=== PATIENT | female | born 1930 | race Caucasian/White ===

== ENCOUNTER 2018-03-30 19:19 | Emergency (ER) | payer MEDICARE, BC, OTHER ==
[~2018-03-30] VITALS: Ht 149.9 cm; Wt 52.6 kg
[~2018-03-30 19:19] MED LIST: ASPIR 8181 MG PO; ATORVASTATIN CA20 MG PO; Aspirin PO; BACTRIM DS TAB1 EACH PO; CARAFATE1 GM PO; D3 + K2 DOTS 11 EACH; GERITOL COMPLE1 EACH; LOSARTAN POTAS100 MG PO; METOPROLOL SUCC50 MG PO; NORCO 7.5-3251 EACH PO; PRILOSEC20 MG PO; PROTONIX40 MG PO; TYLENOL PO
--- NOTE | 2018-03-30 20:45 | Diagnostic Imaging Report ---
History:Trauma Comparison studies: None Technique: Axial images were obtained from the skull base to the vertex. Coronal and sagittal images reconstructed from the axial data. Intravenous contrast: None Findings: Scalp/skull: No abnormalities. Extra-axial spaces: No masses. No fluid collections. Brain sulci: Moderately prominent. Ventricles: Moderate compensatory dilatation. No hydrocephalus. Parenchyma: Ill-defined confluent hypodensities in the supratentorial white matter are microvascular ischemic changes. No masses, hemorrhage, acute or chronic cortical vascular insults. Sellar/suprasellar region: No abnormalities. Craniocervical junction: Patent foramen magnum. No Chiari one malformation. Incidental findings: Atherosclerotic calcifications in the carotid siphons and left vertebral artery. Impression: No acute abnormalities. Chronic findings: 1. Moderate generalized volume loss. 2. Diffuse supratentorial white matter microvascular ischemic changes. Signed by: Dr. Syd Hurst M.D. on 03/30/2018 8:41 PM
--- NOTE | 2018-03-30 20:49 | Diagnostic Imaging Report ---
History: Trauma Comparison studies: None Technique: Axial images were obtained through the cervical region.. Coronal and sagittal images reconstructed from the axial data.. Intravenous contrast: None Findings: Fractures: None. Soft tissues: Atherosclerotic calcifications in the carotid bulbs and carotid siphons. Atlantoaxial articulation: Moderately degenerated Alignment: Normal lordosis. No scoliosis. Cervicomedullary junction: No abnormalities. The foramen magnum is patent. Vertebrae: Bones are moderately demineralized No infection or neoplasm. 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 Foraminal stenosis is moderate bilaterally at C3-4, right at C5-6. Moderate spinal canal stenosis at C5-6 due to disc osteophyte complexes. IMPRESSION: 1. No acute abnormalities. 2. Cannot adequately evaluate for ligament, spinal cord and or vascular abnormalities. 3. Degenerative changes as described. Signed by: Dr. Syd Hurst M.D. on 03/30/2018 8:45 PM
--- NOTE | 2018-03-30 20:50 | Diagnostic Imaging Report ---
History:Trauma Comparison studies: None Technique: Axial images were obtained through the maxillofacial region. Coronal and sagittal images reconstructed from the axial data. Intravenous contrast: None Findings: Soft tissues: And acute left supraorbital superficial hematoma is associated with a focal laceration and subcutaneous emphysema. Bones: No fractures or bone abnormalities. Orbits: Globes: Intact Extra or intraconal abnormalities: None. Paranasal sinuses: Clear IMPRESSION: 1. Acute left supraorbital superficial hematoma with an associated superficial laceration. 2. No fractures. 3. No additional acute maxillofacial abnormalities. Signed by: Dr. Syd Hurst M.D. on 03/30/2018 8:47 PM
== END 2018-03-30 21:57 | disposition home or self-care (01) ==
LOC: ER 19:19
DX: S01.81XA Laceration without foreign body of other part of head, initial encounter (principal); S01.21XA Laceration without foreign body of nose, initial encounter; W06.XXXA Fall from bed, initial encounter; Y92.013 Bedroom of single-family (private) house as the place of occurrence of the external cause; I10 Essential (primary) hypertension; F03.90 Unspecified dementia, unspecified severity, without behavioral disturbance, psychotic disturbance, mood disturbance, and anxiety; E78.5 Hyperlipidemia, unspecified; Z95.810 Presence of automatic (implantable) cardiac defibrillator; Z88.5 Allergy status to narcotic agent
CPT/HCPCS: 70450; 70486; 72125; 99283

== ENCOUNTER 2018-05-24 19:02 | Inpatient (IN) | payer MEDICARE, OTHER ==
[~2018-05-24] VITALS: Ht 149.9 cm; Wt 52.6 kg
[2018-05-24 20:17] LABS: BASOPHILS # (AUTO) 0.1 (0.0-0.1); BASOPHILS % 0.4 % (0.0-1.0); EOSINOPHILS # (AUTO) 0.1 (0.0-0.4); EOSINOPHILS % 0.7 % (0.0-6.0); HEMATOCRIT 36.6 % (34.2-44.1); LYMPHOCYTES # (AUTO) 0.9 (1.0-3.2); LYMPHOCYTES % 5.4 % (18.0-39.1); MEAN CORPUSCULAR HEMOGLOBIN 29.8 pg (28-32); MEAN CORPUSCULAR HGB CONC 32.8 g/dL (31-35); MEAN CORPUSCULAR VOLUME 90.8 fL (81-99); MONOCYTES # (AUTO) 1.1 (0.2-0.8); MONOCYTES % 6.3 % (4.4-11.3); NEUTROPHILS # (AUTO) 14.6 (2.1-6.9); NEUTROPHILS % 86.5 % (38.7-80.0); PLATELET COUNT 382 x10e3/uL (140-360); RED BLOOD COUNT 4.03 x10e6/uL (3.6-5.1); RED CELL DISTRIBUTION WIDTH 14.5 % (11.7-14.4)
[2018-05-24 20:35] LABS: ALBUMIN 3.4 g/dL (3.5-5.0); CALCIUM 9.7 mg/dL (8.4-10.2); CREATININE, SERUM 0.93 mg/dL (0.57-1.11)
--- NOTE | 2018-05-24 21:03 | Diagnostic Imaging Report ---
Examination: CT head without contrast Clinical Indication: Fall; syncope. Technique: Transaxial noncontrast images from the skull base through the vertex were obtained. Sagittal and coronal reformatted images were done. Comparison: Head CT dated 03/30/2018. Findings: Scalp: No abnormalities. Bones: Intact. No fractures. No blastic or lytic lesions. Brain sulci: Moderate volume loss for patient's age. Ventricles: No hydrocephalus. Extra-axial space: No abnormalities. Parenchyma: Again demonstrated are mild confluent areas of hypoattenuation in the periventricular and subcortical white matter, nonspecific. Chronic bilateral cerebellar infarcts. No masses, hemorrhage, or acute or chronic cortical based vascular insults. Suprasellar region: No abnormalities. Craniocervical junction: The foramen magnum is patent. No Chiari one malformation. Incidental findings: Atherosclerotic calcification of the cavernous and supraclinoid internal carotid arteries. Impression: 1. No acute intracranial finding when compared to prior head CT dated 03/30/2018. 2. Unchanged moderate chronic microvascular ischemic change and volume loss. 3. Unchanged chronic lacunar infarcts, as above. Signed by: Dr. Rae Carcamo M.D. on 05/24/2018 8:59 PM
--- NOTE | 2018-05-24 21:14 | Diagnostic Imaging Report ---
Examination: CT CERVICAL SPINE WITHOUT CONTRAST HISTORY:Neck pain. Fall. Syncope. COMPARISON:None. TECHNIQUE: Multidetector helical axial images were obtained without contrast from the foramen magnum to T1. Coronal and sagittal reformatted images were done. Bone and soft tissue windows were evaluated. FINDINGS: Alignment:Normal lordosis with grade I degenerative anterolisthesis of C7 on T1. Vertebrae: Normal height and density. No acute fracture, infection or neoplasm. 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 REtrodental soft tissue without erosive change of the dens. Disc space heights: Severely narrowed at C3-C4 and C5-C6. Caliber of spinal canal: Developmentally normal. Posterior fossa and craniocervical junction: Foramen magnum patent. No Chiari 1 malformation. Soft tissues: Atherosclerotic calcifications of the bilateral carotid bifurcations. Degenerative changes: Diffuse disc osteophyte complex at C5-C6 with moderate right foraminal narrowing. No left foraminal or canal stenosis. The remaining cervical levels demonstrate no disc bulge/ herniation or foraminal or canal stenosis. IMPRESSION: No acute abnormalities when compared to prior cervical spine CT dated 03/30/2018. Signed by: Dr. Rae Carcamo M.D. on 05/24/2018 9:10 PM
[2018-05-24] MEDS ORDERED: ONDANSETRON HCL INJ 2 MG/ML VIAL IV STA (21:30)
[2018-05-24] MEDS: HYDROMORPHONE 1MG/1ML INJ IV PRN ×2 (21:49→23:52)
--- NOTE | 2018-05-24 21:50 | Diagnostic Imaging Report ---
EXAM: HIP RIGHT 2-3 VW (+/- PELVIS) INDICATION: Fall, right knee and thigh pain COMPARISON: None FINDINGS: BONES: Acute mildly displaced right proximal femoral intertrochanteric fracture. JOINTS: No malalignment. SOFT TISSUES: Normal IMPRESSION: Acute mildly displaced right proximal femoral intertrochanteric fracture. Signed by: Dr. Saundra Waldron M.D. on 05/24/2018 9:46 PM
--- NOTE | 2018-05-24 21:50 | Diagnostic Imaging Report ---
EXAM: KNEE RIGHT 2 VIEWS, AP AND CROSSTABLE LATERAL INDICATION: Fall, right knee pain COMPARISON: None FINDINGS: BONES: No acute fractures. The bones are demineralized. JOINTS: No malalignment. SOFT TISSUES: Normal IMPRESSION: No evidence of an acute right knee fracture. Signed by: Dr. Saundra Waldron M.D. on 05/24/2018 9:47 PM
--- NOTE | 2018-05-24 21:51 | Diagnostic Imaging Report ---
EXAM: CHEST SINGLE (PORTABLE), AP 1 view INDICATION: Fall COMPARISON: None FINDINGS: LINES/TUBES: Left approach dual lead pacemaker. LUNGS: No consolidations or edema. PLEURA: No effusions or pneumothorax. HEART AND MEDIASTINUM: Normal for technique. BONES AND SOFT TISSUES: No acute findings. IMPRESSION: No acute thoracic abnormality. Signed by: Dr. Saundra Waldron M.D. on 05/24/2018 9:48 PM
[2018-05-24 21:55] LABS: BACTERIA,URINE MANY /HPF; BILIRUBIN,URINE NEGATIVE (NEGATIVE); CLARITY,URINE CLOUDY (CLEAR); COLOR,URINE YELLOW (YELLOW); EPITHELIAL CELLS,URINE RARE /LPF; KETONES,URINE NEGATIVE (NEGATIVE); LEUKOCYTE ESTERASE ,URINE 1+ (NEGATIVE); NITRITE,URINE NEGATIVE (NEGATIVE); PROTEIN,URINE DIPSTICK TRACE (NEGATIVE); RBC,URINE 0-5 /HPF (0-5); URINE UROBILINOGEN 1 mg/dL (0.2 - 1); WBC,URINE (MAN) 21-50 /HPF (0-5)
[2018-05-24] MEDS ORDERED: ASPIRIN 81 MG CHEW TAB PO ONE (22:30)
[2018-05-24] MEDS ORDERED: HYDROMORPHONE 1MG/1ML INJ IV PRN (22:30)
[2018-05-24] MEDS: SODIUM CHLORIDE 0.9% 1000ML 1,000 ML IV SCH (23:45)
[2018-05-25] MEDS ORDERED: MULTI-VITAMIN1 EACH PO (00:34)
[2018-05-25 04:43] LABS: BASOPHILS % 0.3 % (0.0-1.0); HEMATOCRIT 30.3 % (34.2-44.1); HEMOGLOBIN 10.1 g/dL (12.0-16.0); LYMPHOCYTES # (AUTO) 1.3 (1.0-3.2); LYMPHOCYTES % 8.7 % (18.0-39.1); MEAN CORPUSCULAR HEMOGLOBIN 30.1 pg (28-32); MEAN CORPUSCULAR HGB CONC 33.3 g/dL (31-35); MEAN CORPUSCULAR VOLUME 90.4 fL (81-99); MONOCYTES # (AUTO) 1.1 (0.2-0.8); MONOCYTES % 6.9 % (4.4-11.3); NEUTROPHILS # (AUTO) 12.9 (2.1-6.9); NEUTROPHILS % 83.6 % (38.7-80.0); PLATELET COUNT 291 x10e3/uL (140-360); RED BLOOD COUNT 3.35 x10e6/uL (3.6-5.1); RED CELL DISTRIBUTION WIDTH 14.4 % (11.7-14.4)
[2018-05-25 05:08] LABS: ALANINE AMINOTRANSFERASE 12 IU/L (0-55); ALBUMIN 2.9 g/dL (3.5-5.0); ALKALINE PHOSPHATASE 85 IU/L (40-150); ANION GAP 13.5 mmol/L (8-16); BLOOD UREA NITROGEN 16 mg/dL (7-26); BUN/CREATININE RATIO 20 (6-25); CALCIUM 8.9 mg/dL (8.4-10.2); CARBON DIOXIDE 20 mmol/L (22-29); CHLORIDE 106 mmol/L (98-107); CREATININE, SERUM 0.82 mg/dL (0.57-1.11); EST GLOMERULAR FILTRATION RATE > 60 ML/MIN (60-); GLUCOSE 128 mg/dL (74-118); POTASSIUM 4.5 mmol/L (3.5-5.1); SODIUM 135 mmol/L (136-145)
[2018-05-25 05:15] LABS: CREATINE KINASE MB 2.6 ng/mL (0-5.0)
[2018-05-25] MEDS ORDERED: CEFTRIAXONE SOD 1 GM VIAL ONE (06:52)
[2018-05-25] MEDS: ONDANSETRON HCL INJ 2 MG/ML VIAL IV PRN (07:05)
[2018-05-25] MEDS: CEFTRIAXONE SOD 1 GM VIAL IV SCH (07:05)
[2018-05-25] MEDS: HYDROMORPHONE 1MG/1ML INJ IV PRN ×2 (07:06→22:55)
--- NOTE | 2018-05-25 10:42 | Consultation ---
DATE OF CONSULTATION: May 25, 2018 CARDIOLOGY CONSULTATION Thank you so much for asking me to see Ms. Beard again in consultation. She is a very elderly and demented 88-year-old woman known to me for many years, who was brought to the emergency room by her son after she had a witnessed seizure and fell to the floor at home. HISTORY OF PRESENT ILLNESS: The son at the bedside tells me that she was in her usual state ambulating and seizure activity began, and then she fell to the floor. He reports that she has had a few of these witnessed seizures presumptive recently, and actually saw Dr. Roberts in March of this year, who diagnosed only dementia. PAST MEDICAL HISTORY: Long and complex with rheumatoid arthritis. She had a pacemaker originally placed in 2007 for syncope, and at the same time in 2007 had cardiac cath that showed severe aortic stenosis. No significant coronary disease at the time. Followup echocardiograms have re-demonstrated severe aortic stenosis, but as recently as 2012, but she has consistently refused to do anything about the valve. She had previous left fibular fracture repair by Dr. Velasco in June 2015. She was hospitalized for gastritis in January of 2017. CURRENT MEDICATIONS 1. Pantoprazole 40 mg daily. 2. Aspirin 81 mg daily. 3. Atorvastatin 40 mg daily. 4. Metoprolol succinate 50 mg daily. 5. Losartan 100 mg daily. She had a pacemaker generator replacement on September 06, 2017. PERSONAL/SOCIAL HISTORY: She lives with her son. ALLERGIES: SHE IS ALLERGIC TO CODEINE. PHYSICAL EXAMINATION GENERAL: Shows a pleasant elderly white woman who thinks she went to a restorationism event yesterday with children and adults, but the son tells me this is not true. VITALS: Afebrile. Normotensive. HEENT: Unremarkable. NECK: No jugular venous distention. THORAX: Heart sounds S1 and S2 are equal. There is a faint 1/6 systolic murmur. Pacemaker site is intact. LUNGS: Clear. ABDOMEN: Protuberant. Normal bowel sounds. EXTREMITIES: Show the right leg in traction and no edema. X-ray shows a right intertrochanteric fracture. Urinalysis shows 21-50 white cells per high power field and many bacteria. ASSESSMENT 1. Hip fracture. 2. Witnessed seizure activity. 3. Severe aortic stenosis. 4. Pacemaker. 5. Urinary tract infection. PLAN: Will ask for neurology evaluation and check pacemaker and echocardiogram. She is probably not a surgical candidate for hip fracture repair. Thank you for asking me to see her in consultation. Job#: [id number] RI cc:MD SANTOSH GUSTAFSON MD COURTNEY PRESTON, MD
[2018-05-25 12:32] LABS: CREATINE KINASE MB 2.6 ng/mL (0-5.0)
[2018-05-25 14:41] VITALS: BP 144/85
[2018-05-25 15:00] VITALS: BP_SYST 116; BP_SYST 144; BP_DIAS 83
[2018-05-25] MEDS: SODIUM CHLORIDE 0.9% 1000ML 1,000 ML IV SCH ×2 (15:49→18:17)
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
[2018-05-25 20:00] VITALS: BP 162/74
[2018-05-25 20:30] VITALS: BP 162/74
[2018-05-26] VITALS (10 sets, daily range): BP systolic 110–177; BP diastolic 59–81
[2018-05-26] MEDS ORDERED: ACETAMINOPHEN 325 MG TAB PO ONE (07:00)
[2018-05-26] MEDS: CEFTRIAXONE SOD 1 GM VIAL IV SCH (08:05)
[2018-05-26] MEDS: SODIUM CHLORIDE 0.9% 1000ML 1,000 ML IV SCH ×2 (08:05→14:17)
[2018-05-26] MEDS: ONDANSETRON HCL INJ 2 MG/ML VIAL IV PRN (08:05)
[2018-05-26] MEDS: HYDROMORPHONE 1MG/1ML INJ IV PRN ×2 (08:05→19:56)
[2018-05-26] MEDS ORDERED: SODIUM CHLORIDE FLUSH 10 ML SYR INJ PRN (09:45)
[2018-05-26] MEDS ORDERED: HALOPERIDOL 5 MG TAB PO PRN (09:45)
[2018-05-26] MEDS: ENOXAPARIN 30 MG/0.3 ML SYR SC SCH ×2 (11:20→20:57)
--- NOTE | 2018-05-26 12:34 | Electroencephalogram ---
DATE OF STUDY: May 26, 2018 REQUESTING PHYSICIAN: Teri Deluna MD PATIENT HISTORY: This 88-year-old woman, with history of syncope versus seizure, is having an EEG for evaluation of epileptiform activity. The patient is not taking any medications that might affect the EEG. TECHNIQUE: This is a routine, portable EEG, recorded digitally using the International 10/20 Electrode Placement System, and done in the inpatient setting with the patient awake. The EEG is adequate for interpretation. DESCRIPTION: Well-organized, well-sustained, 5-6 Hz activity is best seen symmetrically in the posterior head regions. No focal or epileptiform activity is recorded. Sleep is not recorded. Photic stimulation does not produce a driving response. Hyperventilation is not performed. INTERPRETATION: This EEG is abnormal with the patient awake due to generalized slowing of background electrocortical activity compatible with moderate diffuse encephalopathy. No epileptiform discharges are seen. Clinical correlation is recommended. Job#: [id number] JEROME EATON
[2018-05-27] MEDS: SODIUM CHLORIDE 0.9% 1000ML 1,000 ML IV SCH (00:17)
[2018-05-27] MEDS: HYDROMORPHONE 1MG/1ML INJ IV PRN ×3 (02:59→23:00)
[2018-05-27 04:21] VITALS: BP 125/63
[2018-05-27 05:17] LABS: BASOPHILS % 0.3 % (0.0-1.0); EOSINOPHILS # (AUTO) 0.4 (0.0-0.4); EOSINOPHILS % 3.5 % (0.0-6.0); HEMATOCRIT 27.2 % (34.2-44.1); HEMOGLOBIN 8.8 g/dL (12.0-16.0); LYMPHOCYTES # (AUTO) 1.4 (1.0-3.2); LYMPHOCYTES % 12.3 % (18.0-39.1); MEAN CORPUSCULAR HEMOGLOBIN 29.8 pg (28-32); MEAN CORPUSCULAR HGB CONC 32.4 g/dL (31-35); MEAN CORPUSCULAR VOLUME 92.2 fL (81-99); MONOCYTES % 8.5 % (4.4-11.3); NEUTROPHILS # (AUTO) 8.4 (2.1-6.9); PLATELET COUNT 214 x10e3/uL (140-360); RED BLOOD COUNT 2.95 x10e6/uL (3.6-5.1); RED CELL DISTRIBUTION WIDTH 14.1 % (11.7-14.4)
[2018-05-27 05:46] LABS: ANION GAP 12.7 mmol/L (8-16); BLOOD UREA NITROGEN 11 mg/dL (7-26); BUN/CREATININE RATIO 15 (6-25); CALCIUM 8.5 mg/dL (8.4-10.2); CARBON DIOXIDE 20 mmol/L (22-29); CHLORIDE 103 mmol/L (98-107); CREATININE, SERUM 0.73 mg/dL (0.57-1.11); EST GLOMERULAR FILTRATION RATE > 60 ML/MIN (60-); GLUCOSE 101 mg/dL (74-118); POTASSIUM 3.7 mmol/L (3.5-5.1); SODIUM 132 mmol/L (136-145)
[2018-05-27] MEDS: CEFTRIAXONE SOD 1 GM VIAL IV SCH (06:21)
[2018-05-27 07:25] VITALS: BP 102/59
[2018-05-27] MEDS: ENOXAPARIN 30 MG/0.3 ML SYR SC SCH ×2 (08:52→21:00)
[2018-05-27] MEDS ORDERED: CEFUROXIME250 MG PO (09:43)
[2018-05-27] MEDS ORDERED: HALOPERIDOL1 MG PO (09:43)
[2018-05-27 11:20] VITALS: BP 141/68
[2018-05-27 15:16] VITALS: BP 157/75
[2018-05-27] MEDS: HALOPERIDOL 1 MG TAB PO PRN (18:19)
[2018-05-27 20:33] VITALS: BP 159/74
[2018-05-27 21:00] VITALS: BP 159/74
[2018-05-27] MEDS: ONDANSETRON HCL INJ 2 MG/ML VIAL IV PRN (23:00)
[2018-05-28 04:54] VITALS: BP 171/75
[2018-05-28] MEDS: CEFTRIAXONE SOD 1 GM VIAL IV SCH (06:21)
[2018-05-28 07:10] VITALS: BP 149/78
[2018-05-28] MEDS: ENOXAPARIN 30 MG/0.3 ML SYR SC SCH ×2 (08:44→21:14)
[2018-05-28] MEDS ORDERED: LACTULOSE SYRUP 20 GM/30 ML UDC PO SCH (09:00)
[2018-05-28 09:18] VITALS: BP 149/78
[2018-05-28 11:52] VITALS: BP 146/73
[2018-05-28] MEDS: HYDROMORPHONE 1MG/1ML INJ IV PRN ×2 (15:45→20:00)
[2018-05-28] MEDS ORDERED: BISACODYL 10 MG SUPP PR PRN (16:00)
[2018-05-28] MEDS ORDERED: LACTULOSE SYRUP 20 GM/30 ML UDC PO PRN (16:00)
[2018-05-28 16:05] VITALS: BP 169/87
[2018-05-28 19:39] VITALS: BP 154/75
[2018-05-29] VITALS (7 sets, daily range): BP systolic 144–164; BP diastolic 55–84
[2018-05-29] MEDS: HYDROMORPHONE 1MG/1ML INJ IV PRN ×2 (04:50→13:20)
[2018-05-29] MEDS: CEFTRIAXONE SOD 1 GM VIAL IV SCH (05:54)
[2018-05-29] MEDS: ENOXAPARIN 30 MG/0.3 ML SYR SC SCH ×2 (09:35→21:26)
[2018-05-29] MEDS: HALOPERIDOL 1 MG TAB PO PRN (18:15)
[2018-05-30] VITALS (9 sets, daily range): BP systolic 144–164; BP diastolic 66–83
[2018-05-30] MEDS: CEFTRIAXONE SOD 1 GM VIAL IV SCH (06:34)
[2018-05-30] MEDS: ENOXAPARIN 30 MG/0.3 ML SYR SC SCH ×2 (09:00→21:27)
[2018-05-30] MEDS ORDERED: LOVENOX30 MG/0.3 SC (09:46)
[2018-05-30] MEDS: HYDROMORPHONE 1MG/1ML INJ IV PRN (11:50)
[2018-05-31] VITALS (7 sets, daily range): BP systolic 135–181; BP diastolic 64–80
[2018-05-31] MEDS: CEFTRIAXONE SOD 1 GM VIAL IV SCH (06:03)
[2018-05-31] MEDS: HYDROMORPHONE 1MG/1ML INJ IV PRN ×2 (06:29→14:15)
[2018-05-31] MEDS: ENOXAPARIN 30 MG/0.3 ML SYR SC SCH ×2 (08:30→21:46)
[2018-06-01] VITALS (9 sets, daily range): BP systolic 135–182; BP diastolic 65–79
[2018-06-01] MEDS: HYDROMORPHONE 1MG/1ML INJ IV PRN (00:19)
[2018-06-01] MEDS: HALOPERIDOL 1 MG TAB PO PRN (07:32)
[2018-06-01] MEDS ORDERED: HALOPERIDOL LACTATE 5 MG/ML VIAL IM ONE (07:45)
[2018-06-01] MEDS: ENOXAPARIN 30 MG/0.3 ML SYR SC SCH ×2 (07:57→21:57)
[2018-06-01] MEDS: CEFUROXIME AXETIL 250 MG TAB PO SCH ×2 (10:30→21:57)
[2018-06-01] MEDS: ACETAMINOPHEN 325 MG TAB PO PRN (12:42)
[2018-06-02 00:09] VITALS: BP 139/79
[2018-06-02 03:50] VITALS: BP 125/70
[2018-06-02] MEDS: HALOPERIDOL 1 MG TAB PO PRN (05:49)
[2018-06-02] MEDS: ACETAMINOPHEN 325 MG TAB PO PRN (05:49)
[2018-06-02 07:25] VITALS: BP 136/65
[2018-06-02 07:39] VITALS: BP 136/65
[2018-06-02] MEDS: ENOXAPARIN 30 MG/0.3 ML SYR SC SCH (08:16)
[2018-06-02] MEDS: CEFUROXIME AXETIL 250 MG TAB PO SCH (08:16)
[2018-06-02 11:58] VITALS: BP 113/56
== END 2018-06-02 14:21 | disposition hospice, inpatient (51) | DRG 535 ==
LOC: ER 19:02 → ERHOLD 22:17 → MED/SURG3 05-25 14:51
PROVIDERS: ADMIT Internal Medicine; ATTEND Internal Medicine
DX: S72.141A Displaced intertrochanteric fracture of right femur, initial encounter for closed fracture (principal); G93.49 Other encephalopathy; N39.0 Urinary tract infection, site not specified; R56.9 Unspecified convulsions; I35.0 Nonrheumatic aortic (valve) stenosis; I10 Essential (primary) hypertension; K21.9 Gastro-esophageal reflux disease without esophagitis; E78.5 Hyperlipidemia, unspecified; E78.00 Pure hypercholesterolemia, unspecified; Z82.49 Family history of ischemic heart disease and other diseases of the circulatory system; M06.9 Rheumatoid arthritis, unspecified; Z95.0 Presence of cardiac pacemaker; Z87.440 Personal history of urinary (tract) infections; G30.9 Alzheimer's disease, unspecified; F02.80 Dementia in other diseases classified elsewhere, unspecified severity, without behavioral disturbance, psychotic disturbance, mood disturbance, and anxiety; Z88.5 Allergy status to narcotic agent
CPT/HCPCS: 36415; 51700; 70450; 71045; 72125; 80048; 80053; 81001; 82550; 82553; 84484; 85025; 93005; 93306; 95812; 96374; 97139; 99284; J0696; J1170; J1630; J1650; J2405; J7030